=== PATIENT | male | born 1980 | race Two or more races ===

== ENCOUNTER 2021-02-26 10:47 | Inpatient (IN) | payer OTHER ==
[~2021-02-26] VITALS: Ht 182.9 cm; Wt 121.8 kg
[2021-02-26] MEDS ORDERED: SODIUM CHLORIDE 0.9% 1,000 ML IVB ONE (11:00)
[2021-02-26] MEDS ORDERED: ONDANSETRON HCL 4 MG/2 ML VIAL IV ONE (11:00)
[2021-02-26] MEDS ORDERED: MORPHINE SULFATE 4 MG/ML SYR/VIAL IV ONE (11:00)
[2021-02-26 11:25] LABS: Basophils # (auto) 0.1 10 ^3/uL (0-0.2); Eosinophils # (auto) 0.3 10 ^3/uL (0-0.8); Hemoglobin 12.3 g/dL (13.5-17.5); Nucleated Red Blood Cells % 0.1 %
[2021-02-26 11:27] LABS: Basophils % (auto) 0.6 % (0.0-2.0); Eosinophils % (auto) 1.7 % (0.0-7.0); Hematocrit 37.6 % (41.0-53.0); Lymphocytes # (auto) 3.5 10 ^3/uL (0.4-5.4); Lymphocytes % (auto) 18.3 % (10.0-50.0); Mean Corpuscular Hemoglobin 22.5 pg (28.0-32.0); Mean Corpuscular Hgb Conc. 32.7 g/dL (32.0-36.0); Mean Corpuscular Volume 68.9 fL (80.0-100.0); Monocytes # (auto) 1.1 10 ^3/uL (0-1.3); Monocytes % (auto) 5.7 % (0.0-12.0); Neutrophils # (auto) 14.1 10 ^3/uL (1.6-8.6); Neutrophils % (auto) 73.7 % (37.0-80.0); Platelet Count (auto) 463 10^3/uL (140-450); Red Blood Cells 5.45 10^6/uL (4.5-5.90); Red Cell Distribution Width 17.5 % (11.8-14.3); White Blood Cell 19.2 10^3/uL (4.4-10.8)
[2021-02-26 11:40] LABS: Albumin 3.1 g/dL (3.4-5.0); Anion Gap 10 (5-15); Blood Urea Nitrogen 12 mg/dL (7-18); Calcium 9.3 mg/dL (8.5-10.1); Carbon Dioxide 20 mmol/L (21-32); Chloride 103 mmol/L (98-107); Glucose 91 mg/dL (74-106); Lipase 116 U/L (73-393); Magnesium 2.1 mg/dL (1.6-2.6); Potassium 4.2 mmol/L (3.5-5.1); Sodium 133 mmol/L (136-145)
[2021-02-26 11:43] LABS: Lactic Acid w/Reflex 2.1 mmol/L (0.4-2.0)
[2021-02-26 11:45] LABS: INR 1.08 (0.9-1.15)
[2021-02-26 11:47] LABS: BUN/Creatinine Ratio 16.9; GFR African American 159 mL/min
[2021-02-26 11:48] LABS: Alanine Aminotransferase 20 U/L (16-61); Alkaline Phosphatase 85 U/L (45-117); Aspartate Aminotransferase 22 U/L (15-37); Bilirubin, Total 0.5 mg/dL (0.2-1.0); GFR Non-African American 131 mL/min
[2021-02-26] MEDS ORDERED: LABETALOL HCL 5 MG/ML 4ML SYRINGE IV PRN (14:15)
[2021-02-26] MEDS ORDERED: MORPHINE SULF INJ 2 MG/ML SYRINGE 1ML IV PRN (14:15)
[2021-02-26] MEDS ORDERED: SODIUM CHLORIDE 0.9% 2,000 ML IV ONE (14:15)
[2021-02-26] MEDS ORDERED: ONDANSETRON HCL 4 MG/2 ML VIAL IV PRN (14:15)
[2021-02-26] MEDS ORDERED: NITROGLYCERIN 0.4 MG SL TAB SL PRN (14:15)
[2021-02-26] MEDS ORDERED: KETOROLAC TROMETH 30 MG/ML 1ML VIAL IV PRN (14:15)
[2021-02-26] MEDS ORDERED: LORazepam 2MG/ML-1ML VIAL IV PRN (14:15)
[2021-02-26] MEDS ORDERED: cefTRIAXone 1GM/50ML D5W 50 ML IV ONE (14:30)
[2021-02-26] MEDS: SODIUM CHLORIDE 0.9% 1,000 ML IV SCH ×2 (15:22→22:15)
[2021-02-26] MEDS ORDERED: levoFLOXacin 500MG 100 ML IV ONE (15:30)
[2021-02-26 16:34] VITALS: BP 151/71
[2021-02-26 16:59] VITALS: BP 151/71
[2021-02-26] MEDS: MORPHINE SULFATE 4 MG/ML SYR/VIAL IV PRN ×2 (17:39→20:51)
[2021-02-26 21:18] LABS: Urine Bacteria NONE SEEN /hpf (None Seen); Urine Blood Negative /uL (Negative); Urine Mucus FEW (None Seen); Urine Specific Gravity 1.019 (1.001-1.035); Urine WBC <1 /hpf (0 - 3)
[2021-02-26] MEDS: KETOCONAZOLE 2 % TOPICAL CREAM 15GM TOP SCH (21:30)
[2021-02-26] MEDS: metroNIDAZOLE 500MG/100ML 100 ML IV SCH (21:30)
[2021-02-26 22:00] VITALS: BP 122/73
[2021-02-27 05:00] VITALS: BP 130/72
[2021-02-27] MEDS: metroNIDAZOLE 500MG/100ML 100 ML IV SCH ×3 (05:54→22:12)
[2021-02-27] MEDS: SODIUM CHLORIDE 0.9% 1,000 ML IV SCH ×3 (06:16→22:13)
[2021-02-27 06:26] LABS: Basophils # (auto) 0.1 10 ^3/uL (0-0.2); Eosinophils # (auto) 0.3 10 ^3/uL (0-0.8); Hematocrit 34.6 % (41.0-53.0); Monocytes # (auto) 1.1 10 ^3/uL (0-1.3)
[2021-02-27 06:30] LABS: Basophils % (auto) 0.6 % (0.0-2.0); Eosinophils % (auto) 1.9 % (0.0-7.0); Hemoglobin 11.2 g/dL (13.5-17.5); Lymphocytes # (auto) 2.3 10 ^3/uL (0.4-5.4); Lymphocytes % (auto) 13.7 % (10.0-50.0); Mean Corpuscular Hemoglobin 22.4 pg (28.0-32.0); Mean Corpuscular Hgb Conc. 32.3 g/dL (32.0-36.0); Mean Corpuscular Volume 69.3 fL (80.0-100.0); Monocytes % (auto) 6.2 % (0.0-12.0); Neutrophils # (auto) 13.3 10 ^3/uL (1.6-8.6); Neutrophils % (auto) 77.6 % (37.0-80.0); Platelet Count (auto) 357 10^3/uL (140-450); Red Blood Cells 4.98 10^6/uL (4.5-5.90); Red Cell Distribution Width 17.8 % (11.8-14.3); White Blood Cell 17.1 10^3/uL (4.4-10.8)
[2021-02-27 06:41] LABS: Albumin 2.7 g/dL (3.4-5.0); Calcium 8.6 mg/dL (8.5-10.1); Potassium 4.2 mmol/L (3.5-5.1)
[2021-02-27 06:44] LABS: BUN/Creatinine Ratio 14.7; Bilirubin, Total 0.5 mg/dL (0.2-1.0); Total Protein 8.9 g/dL (6.4-8.2)
[2021-02-27 08:30] VITALS: BP_SYST 128; BP_SYST 141; BP_DIAS 69; BP_DIAS 78
[2021-02-27] MEDS: ENOXAPARIN SOD 40 MG/0.4 ML SYRINGE SC SCH ×2 (08:57→09:12)
[2021-02-27] MEDS: KETOCONAZOLE 2 % TOPICAL CREAM 15GM TOP SCH ×2 (08:57→22:13)
[2021-02-27] MEDS: cefTRIAXone 1GM/50ML D5W 50 ML IV SCH (08:57)
[2021-02-27] MEDS: PANTOPRAZOLE 40 MG/10 ML VIAL INJ IV SCH (08:57)
[2021-02-27] MEDS: levoFLOXacin 500MG 100 ML IV SCH (10:00)
[2021-02-27 12:30] VITALS: BP 155/87
[2021-02-27 16:51] VITALS: BP 153/67
[2021-02-27 22:00] VITALS: BP 146/71
[2021-02-28 05:00] VITALS: BP 112/68
[2021-02-28] MEDS: metroNIDAZOLE 500MG/100ML 100 ML IV SCH ×2 (06:22→14:00)
[2021-02-28] MEDS: SODIUM CHLORIDE 0.9% 1,000 ML IV SCH ×2 (06:22→14:15)
[2021-02-28 08:00] VITALS: BP 135/69
[2021-02-28 09:00] VITALS: BP 135/69
[2021-02-28] MEDS: KETOCONAZOLE 2 % TOPICAL CREAM 15GM TOP SCH (10:00)
[2021-02-28] MEDS: ENOXAPARIN SOD 40 MG/0.4 ML SYRINGE SC SCH (10:00)
[2021-02-28] MEDS: cefTRIAXone 1GM/50ML D5W 50 ML IV SCH (11:00)
[2021-02-28] MEDS: levoFLOXacin 500MG 100 ML IV SCH (12:03)
[2021-02-28] MEDS: PANTOPRAZOLE 40 MG/10 ML VIAL INJ IV SCH (12:03)
[2021-02-28 12:34] VITALS: BP 122/74
[2021-02-28 12:52] VITALS: BP 134/73
== END 2021-02-28 14:45 | disposition home or self-care (01) | DRG 872 ==
LOC: ER 10:47 → OVERFLOW 14:10 → WEST WING 16:20
PROVIDERS: ADMIT Family Medicine; ATTEND Family Medicine
DX: A41.9 Sepsis, unspecified organism (principal); E87.1 Hypo-osmolality and hyponatremia; A05.9 Bacterial foodborne intoxication, unspecified; B35.6 Tinea cruris; D64.9 Anemia, unspecified; F12.90 Cannabis use, unspecified, uncomplicated; F17.210 Nicotine dependence, cigarettes, uncomplicated; N20.0 Calculus of kidney; K52.9 Noninfective gastroenteritis and colitis, unspecified; Z20.822 Contact with and (suspected) exposure to COVID-19; R59.0 Localized enlarged lymph nodes; Z80.9 Family history of malignant neoplasm, unspecified; Z87.442 Personal history of urinary calculi
CPT/HCPCS: 36415; 71250; 74176; 76705; 80053; 81001; 83605; 83690; 83735; 84443; 84484; 85025; 85610; 87040; 87426; 96361; 96374; 96375; C9113; G0378; J0696; J1956; J2405; J3490